=== PATIENT | female | born 1980 | race Caucasian/White ===

== ENCOUNTER → 2018-08-16 15:51 | Outpatient (CLI) | payer MEDICAID, SELFPAY ==
--- NOTE | 2018-08-16 16:04 | RAD_ITS ---
STUDY: X-RAY - LEFT FOOT CLINICAL: Female, 38 years old. Lateral pain TECHNIQUE: 3 view(s) of the foot. COMPARISON: None. FINDINGS: Normal talus, calcaneus, and tarsal bones. Normal visualized subtalar, talonavicular, calcaneocuboid, tarsal and tarsometatarsal articulations. Normal metatarsi. Normal metatarsophalangeal joint of the great toe. Normal tibial and fibular sesamoid bones. Normal interphalangeal joint of the great toe. Normal phalanges of the great toe. Normal second through fifth metatarsophalangeal joints. Normal interphalangeal joints and phalanges of the lesser toes. The soft tissue structures are unremarkable. RAD/Foot min 3 Views IMPRESSION: Normal x-ray examination of the foot. Electronically Signed: Francisco Javier Martinez MD at 16:24 EST , Service support ,
== END ==
PROVIDERS: Family Provider Nurse Practitioner Family; PCP Nurse Practitioner Family; Referring Provider Nurse Practitioner Family; Visit Provider Nurse Practitioner Family
DX: M79.672 Pain in left foot (principal)
CPT/HCPCS: 73630

== ENCOUNTER → 2019-04-26 13:16 | Outpatient (CLI) | payer MEDICAID, SELFPAY ==
--- NOTE | 2019-04-26 13:20 | US_ITS ---
STUDY: ULTRASOUND OF THE FEMALE PELVIS - COMPLETE REASON FOR EXAM: Female, 39 years old. Painful bleeding LMP: 04/12/2019 TECHNIQUE: Transabdominal and Transvaginal TECHNICAL QUALITY: Adequate. COMPARISON: None. FINDINGS: The uterus is retroverted and is in a midline position. The uterus measures 10.4 x 7.1 x 5.0 cm. Normal uterine cervix. The endometrium measures 9.1 mm in thickness, and is fluid distended. There is no demonstrated endometrial mass. There is no demonstrated myometrial mass. I.U.D. - The patient does not have an I.U.D. The right ovary is visualized. The right ovary measures 4.4 x 3.0 x 2.5 cm. There is a simple 2.1 cm cyst. There is normal arterial and normal venous vascularity. The left ovary is visualized. The left ovary measures 2.8 x 2.5 x 1.4 cm. There is no left ovarian cyst or ovarian mass. There is no visualized left adnexal mass or complex lesion. There is normal arterial and normal venous vascularity. There is no fluid in the cul-de-sac. The bladder is sonographically normal US/Transvaginal Non- IMPRESSION: No suspicious sonographic findings, fluid distended endometrium likely related to cycle Electronically Signed: Francisco Javier Martinez MD at 16:49 EDT , Service support ,
--- NOTE | 2019-04-26 13:20 | US_ITS ---
STUDY: ULTRASOUND OF THE FEMALE PELVIS - COMPLETE REASON FOR EXAM: Female, 39 years old. Painful bleeding LMP: 04/12/2019 TECHNIQUE: Transabdominal and Transvaginal TECHNICAL QUALITY: Adequate. COMPARISON: None. FINDINGS: The uterus is retroverted and is in a midline position. The uterus measures 10.4 x 7.1 x 5.0 cm. Normal uterine cervix. The endometrium measures 9.1 mm in thickness, and is fluid distended. There is no demonstrated endometrial mass. There is no demonstrated myometrial mass. I.U.D. - The patient does not have an I.U.D. The right ovary is visualized. The right ovary measures 4.4 x 3.0 x 2.5 cm. There is a simple 2.1 cm cyst. There is normal arterial and normal venous vascularity. The left ovary is visualized. The left ovary measures 2.8 x 2.5 x 1.4 cm. There is no left ovarian cyst or ovarian mass. There is no visualized left adnexal mass or complex lesion. There is normal arterial and normal venous vascularity. There is no fluid in the cul-de-sac. The bladder is sonographically normal US/Pelvic (Non ) IMPRESSION: No suspicious sonographic findings, fluid distended endometrium likely related to cycle Electronically Signed: Francisco Javier Martinez MD at 16:49 EDT , Service support ,
--- NOTE | 2019-04-26 14:46 | RAD_ITS ---
STUDY: X-RAY - RIGHT SHOULDER REASON FOR EXAM: Female, 39 years old. Pain TECHNIQUE: 4 view(s) of the shoulder. COMPARISON: None. FINDINGS: Normal glenohumeral articulation. Normal acromioclavicular joint. Normal acromion. Normal humeral head and visualized proximal humerus. The soft tissue structures are unremarkable. Normal visualized pulmonary apex. RAD/Shoulder min 2 Views IMPRESSION: Normal x-ray examination of the shoulder. Electronically Signed: Francisco Javier Martinez MD at 16:01 EDT , Service support ,
--- NOTE | 2019-04-26 15:00 | RAD_ITS ---
STUDY: X-RAY - RIGHT SCAPULA REASON FOR EXAM: Female, 39 years old. Posterior pain TECHNIQUE: 2 view(s) of the scapula were obtained. COMPARISON: None. FINDINGS: Normal scapula, including the osseous glenoid rim, acromion, scapular neck, spine, coracoid process, and visualized body. Normal glenohumeral articulation. Normal acromioclavicular joint. Normal visualized humeral head. Normal visualized pulmonary apex. RAD/Scapula IMPRESSION: Normal plain film x-ray examination of the scapula. Electronically Signed: Francisco Javier Martinez MD at 16:02 EDT , Service support ,
== END ==
DX: M25.511 Pain in right shoulder (principal); N94.6 Dysmenorrhea, unspecified
CPT/HCPCS: 73010; 73030; 76830; 76856

== ENCOUNTER → 2019-04-29 07:43 | Outpatient (CLI) | payer MEDICAID, SELFPAY ==
[2019-04-29 08:31] LABS: Follicle Stimulating Hormone 2.6 mIU/mL; Luteinizing Hormone 6.1 mIU/mL; Prolactin 20.3 ng/mL
[2019-05-01 09:54] LABS: Progesterone Level 13.91 ng/mL (See Comment)
== END ==
DX: N92.6 Irregular menstruation, unspecified (principal)
CPT/HCPCS: 36415; 83001; 83002; 84144; 84146; 84403

== ENCOUNTER → 2019-06-23 17:03 | Outpatient (CLI) | payer MEDICAID, SELFPAY ==
--- NOTE | 2019-06-23 | EMB_PTH ---
PATIENT: HESHAM WILKES LOC: [facility] U#:[id number] AGE/SX: 45/F ROOM: RE06/23/[address]: Dr. Adelia Ríos MD : 1980 BED: DIS: SPEC #: [id number] RECD: 06/23/19 16:40 STATUS: ALEK ERIC #: [id number] DARYA: 06/23/19 00:[address]: Adelia Ríos DEPT: SURGICAL PATHOLOGY RECD BY: Santhosh Yuan ENTERED: 06/26/19 10:14 SP TYPE: ENDOM BX/C JUAN DR: Gillian [facility] Tissues: Endometrium, NOS Procedures: Surgery Specimen Level IV HEADER OPERATION: Endometrial biopsy PRE-OP DIAGNOSIS: Menorrhagia with regular cycle TISSUE SUBMITTED: Endometrial lining MICROSCOPIC DIAGNOSIS Endometrium, biopsy: Secretory endometrium. Detached squamous epithelial cells with no significant pathologic change. AM:kim 06/27/19 MICROSCOPIC DESCRIPTION Slides are reviewed. GROSS DESCRIPTION Received is one container labeled with the patient's name and not further designated. The specimen consists of multiple fragments of hemorrhagic soft tissue mixed with mucoid tissue that in aggregate measure 2.5 x 2 x 0.1 cm. The specimen is totally submitted in one cassette. / SJ:rg 06/26/19 TC:5 CPT: 88590
[2019-06-23 08:13] VITALS: BMI 42.9
== END ==
PROVIDERS: Referring Provider Obstetrics & Gynecology; Visit Provider Obstetrics & Gynecology
DX: N85.8 Other specified noninflammatory disorders of uterus (principal); N92.0 Excessive and frequent menstruation with regular cycle
CPT/HCPCS: 88305

== ENCOUNTER 2019-08-08 05:14 | Day surgery (SDC) | payer MEDICAID, SELFPAY ==
[2019-06-23 08:13] VITALS: BMI 42.9
[2019-08-01 13:44] VITALS: BMI 42.9
[2019-08-01 13:44] LABS: Hematocrit 38.3 % (37-47); Hemoglobin 12.5 g/dL (12.0-15.0); Mean Corp Hgb Conc 32.6 g/dL (32-36); Mean Corpuscular Hgb 28.5 pg (27.0-32.0); Mean Corpuscular Volume 87.2 fL (81-99); Mean Platelet Vol. 9.2 fl (6.2-12.0); Platelet Count 362 K/mm3 (150-450); RBC Distribution Width CV 12.8 % (11.6-14.6); RBC Distribution Width SD 40.8 fl (35.1-43.9); Red Blood Count 4.39 M/mm3 (4.2-5.4); White Blood Count 10.6 K/mm3 (4.4-11.0)
[2019-08-01 13:52] LABS: Prothrombin Time (Protime)PT. 12.6 SECONDS (11.7-14.9)
[2019-08-01 13:53] LABS: Partial Thromboplast Time 30.6 Seconds (24.1-36.2)
[2019-08-08] VITALS (12 sets, daily range): BP systolic 80–137; BP diastolic 54–79; PULSE 66–111; RESP 16–18; TEMP 36.2–37.2; O2SAT 93–100; BMI 44.9
--- NOTE | 2019-08-08 05:42 | PCM.HPOB.BLA ---
- Problem List (1) Dysmenorrhea Status: Acute Comment: plan LAVH BS cysto. emb done. possible TLH (2) Menorrhagia with regular cycle Status: Acute Comment: failed OCP. Declines IUD. 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 Is patient in pain?: No Allergies sulfamethoxazole [From Bactrim] Adverse Reaction (Intermediate, Verified 08/01/19 13:43) itchy trimethoprim [From Bactrim] Adverse Reaction (Intermediate, Verified 08/01/19 13:43) itchy Medications Ascorbic Acid [Vitamin C] 1,000 mg PO DAILY 08/01/19 [History Confirmed 08/01/19] Cholecalciferol (VIT D3) [Vitamin D] 1,000 unit PO DAILY 08/01/19 [History Confirmed 08/01/19] Vitamin B Complex 1 ea PO DAILY 08/01/19 [History Confirmed 08/01/19] Is last menstrual period known: No Post menopausal: No Patient : No : [facility] Medical History Anemia (Acute) Vitamin D deficiency (Acute) Surgical History (Updated 08/01/19 @ 13:51 by Adelia Ríos MD) delivery delivered (Acute) FHx: cholecystectomy (Acute) H/O tubal ligation (Acute) Social History (Updated 08/01/19 @ 13:55 by Adelia Ríos MD) number of children: 3 current occupational status: employed current occupation: [employer] Smoking Status: Former smoker quit date: 09/09/18 alcohol intake: never substance use type: does not use caffeine: Yes seatbelt use: always do you feel safe at home: Yes additional social history: post office manager HPI pre op LAVH BS CYST: Details: HESHAM WILKES is a 39 year old who presents for heavy menstrual bleeding failed medical management. Uterus 10 cm on ultrasound and nl emb. Female Reproductive History Questions: Metorrhagia: No, Sexually active: Yes Pregancy History 4 Elective abortions Hx Para 3 Spontaneous abortions 1 Hx # Term Pregnancies 3 Ectopic pregnancies Hx # Pregnancies Multiple births # of living children 3 Past Pregnancies Del. Date Name GA/Weeks Outcome Route Bth Weight [facility] Peggy 2002 Unknown Mode 2004 Unknown Justyn 2012 ROS Const Constitutional: Denies fatigue, fever(s), headache(s), increased appetite, poor appetite, weight gain or weight loss ENT ENT: Denies dizziness or dry mouth Cardio Card: Denies chest pain Resp Resp: Denies cough or dyspnea GI GI: Reports as per HPI; denies abdominal pain, constipation, nausea or vomiting : Reports as per HPI; denies difficulty urinating, painful urination, pelvic pain, urinary frequency, urinary incontinence, urinary hesitancy, urinary urgency, vaginal discharge, vaginal dryness, vaginal odor or vaginal itching Musc Musc: Denies joint pain, back pain or muscle weakness Skin Skin/Breast: Denies hair loss, change in hair, dry skin, breast lump, breast pain or breast skin changes Neuro Neuro: Denies dizziness Psych Psych: Denies anxiety or depression Endo Endo: Denies cold intolerance, excessive sweating, heat intolerance or increased thirst Felice/Lymph Hematologic/Lymphatic: Denies easy bleeding, Denies easy bruising, Denies enlarged lymph nodes Exam Const General: cooperative, healthy appearing, comfortable, no acute distress, well developed Nutritional Appearance: average body habitus Orientation: alert [facility] Head: normal to inspection, normocephalic Ears: hearing grossly normal bilaterally, external ears normal Nose: external nose normal, nares normal Face and sinus: normal facial exam Neck Neck: normal visual inspection, no lymphadenopathy, trachea midline Thyroid: thyroid normal Chest Chest palpation & inspection: normal inspection of the chest Resp Effort & Inspection: normal respiratory effort Auscultation: clear to auscultation bilaterally Cardio Rate: regular rate Rhythm: regular rhythm Heart Sounds: S1 normal, S2 normal GI Inspection: normal to inspection, non-distended Palpation: soft, no hepatosplenomegaly General: bladder normal to palpation External Female Exam: normal external appearance, normal appearance of the urethra Urethra: normal appearance of the urethra Speculum Exam - Vagina: normal appearance of the vagina, normal vaginal discharge Speculum Exam - Cervix: normal appearance of the cervix, nontender Bimanual Exam- Vagina & Uterus: bladder normal to palpation, No cervical tenderness Bimanual Exam- Adnexa, other: normal adnexae, adnexae mobile, no adnexal masses, pelvic support normal Pelvic Support: normal Musc Cervical Spine: other Other: gross motor intact no deficits, full bilateral strength Skin General: no rashes or lesions noted Neuro General: alert, awake, moves all extremities, no focal motor deficits Motor: muscle tone normal throughout Extrem General: normal to inspection, no pedal edema Psych Appearance: grossly normal Mental Status: mental status grossly normal Affect: normal affect Speech and Movement: speech and movement normal Assessment & Plan Problems 1. Menorrhagia with regular cycle N92.0 failed OCP. Declines IUD. US normal Plan After discussing the patient's diagnosis and treatment plan options, patient wishes to proceed with surgical management. I have discussed with the patient the risks, benefits, and alternatives of the procedure which include but are not limited to risks of anesthesia, bleeding, infection, possible damage to bowel, bladder, or surrounding vasculature which could lead to additional surgery to evaluate any complications. Patient agrees to procedure and wishes to proceed. ACOG/uptodate references given for additional information regarding procedure. Coding Level of Care Code No Charge Diagnoses Menorrhagia with regular cycle N92.0 UPDATE- I have seen the patient and performed any clinically relevant updates to the history and physical exam. Adelia Ríos MD
[2019-08-08] MEDS: Magnesium Sulfate 4gm/100mL 4 GM/100 ML IV.SOLN. IV (06:01)
[2019-08-08] MEDS: dexAMETHasone 10 MG/ML Vial 8 MG IV (06:04)
[2019-08-08] MEDS: Acetaminophen 500 MG Tablet 1000 MG PO ×4 (06:04→23:13)
[2019-08-08] MEDS: Celecoxib 200 MG Capsule 400 MG PO (06:05)
[2019-08-08] MEDS: Phenazopyridine 95 MG Tablet 190 MG PO (06:06)
[2019-08-08] MEDS: Gabapentin 600 MG Tablet PO (06:07)
[2019-08-08] MEDS: Scopolamine 1mg/72hr Patch 1 PATCH TRANSDERM. (06:07)
[2019-08-08] MEDS: Lactated Ringers 1,000 ML 100 ML IV ×2 (06:34→10:54)
[2019-08-08 07:14] LABS: Bedside Glucose 108 mg/dL (70-110)
--- NOTE | 2019-08-08 08:20 | PCM.OPRPT ---
Problem List (1) Dysmenorrhea Status: Acute Comment: plan LAVH BS cysto. emb done. possible TLH (2) Menorrhagia with regular cycle Status: Acute Comment: failed OCP. Declines IUD. US normal (3) Climacteric Status: Chronic Comment: discussed if persistent after LAVH plan effexor Report of Operation Date of Procedure: 08/08/19 Pre-Operative Diagnosis: AUB Post-Operative Diagnosis: same Surgery/Procedure Performed:: LAVH BS cysto engraver steel plate: Madelyn Becerril Type of Anesthesia:: General Special Medications: none Specimen's removed: uterus tubes Drains: hamlin Fluids Replaced: crystalloid Description of Procedure: Patient received preoperative antibiotics and SCDs were on preoperatively. Patient was taken back to the operating room and placed in the dorsal lithotomy position. General anesthesia was induced and patient was prepped and draped in normal sterile fashion. Uterine manipulator was placed inside the uterus and Hamlin catheter placed in the bladder. The umbilicus was grasped with towel clamps and an intraumbilical incision was made after injecting with quarter percent Marcaine and a Veress needle entered into the abdomen confirmed to be intra-abdominal with a low opening pressure. Abdomen was insufflated with CO2 gas and the Veress needle removed and the 5 mm trocar was placed under direct visualization without complication. Right and left lower quadrants were transilluminated and injected with quarter percent Marcaine and 5 mm ports placed under direct visualization. Pelvis was well visualized see operative findings for additional information. Bilateral fallopian tubes were identified and transected with the LigaSure device across the mesosalpinx to the level of the utero-ovarian ligament which was also transected with the LigaSure device. The broad ligament was opened up by transecting the round ligament bilaterally and skeletonizing the uterine vessels bilaterally and creating a bladder flap using the LigaSure device. The uterine arteries were transected bilaterally with good visualization of the bladder and the ureters were seen to be inferior lateral to the operative area. Attention was then paid to the vaginal portion of the procedure and the cervix was grasped with Saurabh clamps and circumferentially injected with dilute vasopressin. A circumferential incision was made and the vaginal mucosa was mobilized off posteriorly and the cul-de-sac entered into sharply and a longneck speculum placed. The anterior cul-de-sac was then identified and entered into sharply. The uterosacral ligaments were clamped cut and suture ligated with 0 Monocryl bilaterally followed by the cardinal ligaments which were clamped cut and suture ligated bilaterally with 0 Monocryl. The uterus serially descended and was removed without difficulty with minimal morcellation. Pelvic sidewall pedicles were checked and noted to have excellent hemostasis. The vaginal mucosa was reapproximated incorporating the posterior peritoneum. This was reapproximated using 0 Vicryl [id number] sutures. Excellent hemostasis was noted. The cystoscopy was then performed and bilateral ureteral strong spray was noted and the bladder was noted to have no abnormality or lesions seen. Hamlin catheter was replaced and then attention paid to the abdominal portion of the procedure again. The pelvis and cul-de-sac was well visualized and no significant active bleeding noted but some raw areas were seen on the peritoneum and therefore Holley was applied. Pressure was taken down and the areas visualized and noted of excellent hemostasis. All ports were removed under direct visualization without complication and the abdomen was desufflated of air. The instruments removed from the abdomen and the vagina vaginal sweep was negative. Port sites on the abdomen were closed with 4-0 Monocryl interrupted sutures and Steri's and windows were applied. She was awoken and taken recovery in stable condition. Grafts/Implants Used: none - Admit VTE Documentation VTE Present on Admission: No VTE Mechan Device Prophylaxis: SCD's Multi Select Codes - Urinary/Genital Urinary/Genital CPT Codes: 15058 LAVH+BS/O <250gr Uterus
[2019-08-08] MEDS: Cefazolin 2 GM in 0.9% Normal Saline 100 ML IV (08:21)
[2019-08-08] MEDS: Vasopressin 20 UNITS/ML Vial (08:48)
[2019-08-08] MEDS: Bupivacaine 0.25% 30 ML Vial (08:55)
--- NOTE | 2019-08-08 11:40 | DCINST_ITS ---
Discharge Diet: No Restrictions Discharge Activity: Return to Normal Activity, May Not Drive, May Shower May resume sexual activity in: 6-8 weeks Call your doctor if your incision/area has: Continuous Slow Oozing, Sudden Increased Bleeding, Increased Pain/ Swelling, Increased Redness, Foul Smelling Discharge Call your doctor if you observe: Fever of 101 or Higher, Inability to urinate, Inability to have a bowel movement, Using more than one pad per hour Allergies/Adverse Reactions: Allergies sulfamethoxazole [From Bactrim] Adverse Reaction (Intermediate, Verified 08/08/19 05:50) itchy trimethoprim [From Bactrim] Adverse Reaction (Intermediate, Verified 08/08/19 05:50) itchy Medications to take at Discharge Ascorbic Acid [Vitamin C] 1,000 mg PO DAILY 08/01/19 Cholecalciferol (VIT D3) [Vitamin D] 1,000 unit PO DAILY 08/01/19 Vitamin B Complex 1 ea PO DAILY 08/01/19 hydroxyzine pamoate 25 mg capsule 25 mg PO Q6H PRN #20 cap 08/04/19 Naproxen [Naprosyn] 250 - 500 mg PO Q8H PRN PRN #30 tab 08/08/19 Oxycodone HCl/Acetaminophen [Percocet 5-325] 1 - 2 tablet PO Q6H PRN PRN 7 Days #15 tablet 08/08/19 The following prescriptions were given: Naproxen [Naprosyn] 250 - 500 mg PO Q8H PRN PRN #30 tab PRN Reason: MILD PAIN Transmission Status: Pending to [facility] Oxycodone HCl/Acetaminophen [Percocet 5-325] 1 - 2 tablet PO Q6H PRN PRN 7 Days #15 tablet PRN Reason: Pain Transmission Status: Sent to [facility] Orders to be completed after discharge: Type & Screen Time Frame: 08/01/19, Facility: [facility], Location: Laboratory CBC-Complete Blood Cnt No Diff Time Frame: 08/01/19, Facility: [facility], Location: Laboratory Partial Thromboplast Time Time Frame: 08/01/19, Facility: [facility], Location: Laboratory Prothrombin Time w/INR Time Frame: 08/01/19, Facility: [facility], Location: Laboratory Primary Care Physician: Gillian Son [Primary Care Provider] - Test Results: Test results from this visit will be discussed in further detail at your follow- up appointment, if applicable. Please Follow Up With: Adelia Ríos MD - [phone]
[2019-08-08] MEDS: Ketorolac 30 MG/ML Syringe IV (17:37)
[2019-08-08] MEDS: Docusate Sodium 100 MG Capsule PO (21:32)
[2019-08-08] MEDS: Lactated Ringers 1,000 ML 70 ML IV (23:13)
[2019-08-09 02:45] VITALS: BP 126/63; PULSE 94; RESP 18; TEMP 36.7; O2SAT 96
[2019-08-09] MEDS: Ketorolac 30 MG/ML Syringe IV (03:05)
[2019-08-09 06:01] LABS: Hematocrit 34.5 % (37-47); Hemoglobin 11.1 g/dL (12.0-15.0); Mean Corp Hgb Conc 32.2 g/dL (32-36); Mean Corpuscular Hgb 28.3 pg (27.0-32.0); Platelet Count 377 K/mm3 (150-450); RBC Distribution Width CV 12.9 % (11.6-14.6); RBC Distribution Width SD 41.5 fl (35.1-43.9); Red Blood Count 3.92 M/mm3 (4.2-5.4); White Blood Count 14.9 K/mm3 (4.4-11.0)
[2019-08-09] MEDS: Acetaminophen 500 MG Tablet 1000 MG PO (06:07)
[2019-08-09 07:33] VITALS: O2SAT 96
[2019-08-09 07:44] VITALS: BP 119/70; PULSE 72; RESP 16; TEMP 36.7; O2SAT 96
[2019-08-09] MEDS: Vitamin B Comp W-C Capsule 1 CAP PO (07:56)
[2019-08-09] MEDS: Docusate Sodium 100 MG Capsule PO (11:04)
== END 2019-08-09 13:30 | disposition home or self-care (01) ==
LOC: SDC 05:14 → AC 05:23 → MS3 09:25
PROVIDERS: Referring Provider Obstetrics & Gynecology
PROC: 0UT9FZZ Resection of Uterus, Via Natural or Artificial Opening With Percutaneous Endoscopic Assistance (ICD-10-PCS; CPT 58552; principal; 2019-08-08 07:05)
DX: D25.1 Intramural leiomyoma of uterus (principal); N80.0 Endometriosis of uterus; Z86.2 Personal history of diseases of the blood and blood-forming organs and certain disorders involving the immune mechanism; Z87.891 Personal history of nicotine dependence
CPT/HCPCS: 58552; 36415; 82962; 85027; 85610; 85730; 86850; 86900; 86901; 88307; 94762; 99251; 99406; J7120; G0463; J2405

== ENCOUNTER → 2020-09-26 13:43 | Outpatient (CLI) | payer MEDICAID, SELFPAY ==
[2020-09-23 14:29] VITALS: BMI 45.3
[2020-09-26 15:00] LABS: Absolute Lymphocyte Count 3.92 X10^3/uL (0.83-4.51); Absolute Neutrophil Count 5.5 X10^3/uL (2.0-7.7); Basophil# 0.08 X10^3/uL; Basophil% 0.8 % (0-1); Eosinophils% 3.8 % (0-5); Hematocrit 43.4 % (37-47); Hemoglobin 14.1 g/dL (12.0-15.0); Lymphocyte # 3.92 X10^3/ul (4.0); Mean Corp Hgb Conc 32.5 g/dL (32-36); Mean Corpuscular Hgb 28.9 pg (27.0-32.0); Mean Corpuscular Volume 88.9 fL (81-99); Mean Platelet Vol. 9.7 fl (6.2-12.0); Monocyte# 0.64 X10^3/uL; NRBC Flagged by Analyzer 0 % (0-5); Neutrophil # 5.53 X10^3/uL (2.7-7.7); Neutrophil % 52.1 % (47-70); Platelet Count 369 K/mm3 (150-450); RBC Distribution Width CV 12.6 % (11.6-14.6); RBC Distribution Width SD 40.9 fl (35.1-43.9); Red Blood Count 4.88 M/mm3 (4.2-5.4); White Blood Count 10.6 K/mm3 (4.4-11.0)
[2020-09-26 15:25] LABS: Hemoglobin A1c 5.6 % (3.8-5.6)
[2020-09-26 15:57] LABS: ALB/GLOB Ratio 0.9 RATIO (0.9-2.4); AST(SGOT) 16 U/L (15-37); Alanine Aminotransfer ALT/SGPT 31 U/L (13-56); Albumin, Serum 3.7 g/dL (3.2-5.0); Alkaline Phosphatase 78 U/L (45-117); Anion Gap 6 (5-15); BUN 15 mg/dL (7-18); Chloride 110 mmol/L (98-107); Cholesterol 176 mg/dL (200); Creatinine, Serum 0.68 mg/dL (0.55-1.02); EST Glomerular Filtration Rate 102 mL/min (>60); Est Glom Filt Rate - Afr Amer 123 mL/min (>60); Globulin 3.9 g/dL (2.2-4.2); Glucose 77 mg/dL (74-106); High Density Lipoprotein 48 mg/dL; Potassium 3.7 mmol/L (3.5-5.1); Protein, Total 7.6 g/dL (6.4-8.2); Sodium Level 139 mmol/L (136-145); T4 Free Direct 0.99 ng/dL (0.76-1.46); Thyroid Stim Hormone (TSH) 1.42 uIU/mL (0.358-3.74); Triglycerides 170 mg/dL; Very Low Density Lipoprotein 34 mg/dL (5-40)
[2020-09-28 09:28] LABS: Thyroid Peroxidase AB < 9 IU/mL (0-34)
== END ==
PROVIDERS: Referring Provider Nurse Practitioner Adult Health; Visit Provider Nurse Practitioner Adult Health
DX: R63.5 Abnormal weight gain (principal)
CPT/HCPCS: 36415; 80053; 80061; 83036; 84439; 84443; 85025; 86376

== ENCOUNTER → 2020-10-29 20:00 | Outpatient (CLI) | payer MEDICAID, SELFPAY ==
[2020-09-23 14:29] VITALS: BMI 45.3
== END ==
DX: G47.33 Obstructive sleep apnea (adult) (pediatric) (principal)
CPT/HCPCS: 95810

== ENCOUNTER → 2020-11-26 20:04 | Outpatient (CLI) | payer MEDICAID, SELFPAY ==
[2020-11-13 07:42] VITALS: BMI 44.6
[2020-11-25 08:16] VITALS: BMI 44.6
[2020-11-26] MEDS: Zolpidem Tartrate 5 MG Tablet PO (21:55)
== END ==
PROVIDERS: Visit Provider Nurse Practitioner Acute Care
DX: G47.33 Obstructive sleep apnea (adult) (pediatric) (principal)
CPT/HCPCS: 95810

== ENCOUNTER → 2021-02-18 07:16 | Outpatient (CLI) | payer MEDICAID, SELFPAY ==
[2021-01-27 08:36] VITALS: BMI 44.9
--- NOTE | 2021-02-18 07:17 | MRI_ITS ---
EXAM: MR HEAD WITHOUT AND WITH INTRAVENOUS CONTRAST : 1980 CLINICAL INDICATION: migraine headaches TECHNIQUE: Multiplanar and multisequence MR images of the brain were obtained without and with intravenous contrast. This report was created using [employer] report Authentic Response technology. CONTRAST: None specified COMPARISON: None. FINDINGS: BRAIN AND EXTRA-AXIAL SPACES: Unremarkable. No intra- or extra-axial hemorrhage. No evidence of acute infarct. No intracranial mass or mass effect. There is preservation of the corona/white matter interface. Posterior fossa structures are unremarkable. Ventricles are appropriate for age. No hydrocephalus. Basal cisterns are patent. No abnormal contrast enhancement SELLA: Unremarkable. Normal sella turcica, pituitary gland, infundibular stalk, optic chiasm and hypothalamus. AUDITORY SYSTEM: Unremarkable. The internal auditory canals are patent. BONES/JOINTS: Unremarkable. No discrete lytic or blastic abnormalities. SINUSES: Unremarkable as visualized. Clear. MASTOID AIR CELLS: Unremarkable as visualized. Clear. ORBITS: Unremarkable as visualized. Both globes, extraocular muscles, optic nerves and retrobulbar fat appear unremarkable. VASCULATURE: Unremarkable as visualized. Normal flow voids in the major intracranial circulation. MRI/Brain W/WO Contrast IMPRESSION: Normal MRI of the brain with and without contrast. at 1102 Reported and signed by: Kana Merrill MD Electronically Signed: Kana Merrill MD at 11:01 EDT Tel , Service support ,
[2021-02-18 08:00] LABS: CREATININE FINGERSTICK 0.8 mg/dL (0.55-1.02); EGFR FINGERSTICK > 60.0000 mL/min (>60)
== END ==
PROVIDERS: Referring Provider Psychiatry & Neurology Neurology; Visit Provider Psychiatry & Neurology Neurology
DX: G43.009 Migraine without aura, not intractable, without status migrainosus (principal)
CPT/HCPCS: 70553; A9575

== ENCOUNTER 2021-09-16 16:25 | Outpatient (CLI) | payer MEDICAID, SELFPAY ==
--- NOTE | 2021-09-16 16:28 | BI_ITS ---
MAMMOGRAPHY - BILATERAL SCREENING REASON FOR EXAM: Female, 41 years old. Routine annual screening examination. PERTINENT HISTORY: Non-contributory. TECHNIQUE: Digital bilateral breast jessica (3D mammographic acquisition) in the CC and MLO projections. 2-D mediolateral oblique (MLO) and craniocaudad (CC) views of both breasts were obtained. CAD: Full Field Digital Mammography with Computer Added Detection was performed. COMPARISON: None. Baseline examination. FINDINGS: Breast Composition: The breasts are almost entirely fatty. There is a 1 cm x 1 cm well-defined nodule with a central fatty hilum in the upper slightly medial aspect of the right breast. This most likely represents a small intramammary lymph node. Correlation with ultrasound is recommended. Small bilateral benign-appearing axillary lymph nodes. No other significant abnormalities are identified. BI/SCRN MAMM (CAD)W/JESSICA BILAT IMPRESSION: 1 cm x 1 cm well-defined nodule in the right breast as described most likely representing a lymph node. Correlation with ultrasound is recommended. ASSESSMENT CATEGORY: BIRADS Category 0: Incomplete. Need additional imaging evaluation. A letter regarding these results will be sent to the patient by the facility within 30 days. Approximately 10% of breast cancers are not detected by mammography. A normal mammogram should not delay biopsy of a clinically suspicious abnormality. [id number] Electronically Signed: Anthony Elkins MD at 8:34 EST ,
== END 2021-09-16 23:59 | disposition home or self-care (01) ==
LOC: OPBI 16:26
PROVIDERS: Referring Provider Nurse Practitioner Women's Health; Visit Provider Nurse Practitioner Women's Health
DX: Z12.31 Encounter for screening mammogram for malignant neoplasm of breast (principal)
CPT/HCPCS: 77063; 77067

== ENCOUNTER 2021-09-23 07:54 | Outpatient (CLI) | payer MEDICAID, SELFPAY ==
--- NOTE | 2021-09-23 07:56 | US_ITS ---
STUDY: ULTRASOUND BREAST - RIGHT REASON FOR EXAM: Female, 41 years old. Abnormal screening mammogram. TECHNIQUE: Axial and longitudinal images of the RIGHT breast were performed with a high resolution ultrasound transducer. # OF IMAGES: 23 COMPARISON: 09/16/2021 FINDINGS: RIGHT Breast: Heterogeneous echotexture and architecture. At 5 o''clock, 4 cm from the nipple, ultrasound confirms a 5 x 12 mm oval parallel indistinct hypoechoic mass with no posterior features not consistent with a simple cyst.: US/Breast Limited Unilateral IMPRESSION: Ultrasound confirms a 5 x 12 mm oval parallel indistinct hypoechoic mass and ultrasound-guided vacuum-assisted core biopsy is recommended. ASSESSMENT CATEGORY: BIRADS Category 4: Suspicious - Biopsy Should Be Considered. A letter regarding these results will be sent to the patient by the facility within 30 days. Electronically Signed: Joshua Mohamud MD at 9:38 EDT ,
== END 2021-09-23 23:59 | disposition home or self-care (01) ==
PROVIDERS: Referring Provider Nurse Practitioner Women's Health; Visit Provider Nurse Practitioner Women's Health
DX: N63.10 Unspecified lump in the right breast, unspecified quadrant (principal)
CPT/HCPCS: 76642

== ENCOUNTER 2021-09-26 16:05 | Outpatient (CLI) | payer MEDICAID, SELFPAY ==
--- NOTE | 2021-09-26 14:05 | BRBX_PTH ---
PATIENT: HESHAM WILKES LOC: [facility] U#:[id number] AGE/SX: 41/F ROOM: RE09/26/[address]: Dr. Jake Crowell MD : 1980 BED: DIS: 09/26/2021 SPEC #: [id number] RECD: 09/26/21 15:40 STATUS: ALEK REJosselyn #: [id number] DARYA: 09/26/21 14:[address]: Jake Crowell DEPT: SURGICAL PATHOLOGY RECD BY: Stefani Santiago ENTERED: 09/29/21 10:34 SP TYPE: BREAST BX OTHR DR: Gillian [facility] Tissues: Right breast, NOS Procedures: Surgery Specimen Level IV HEADER OPERATION: Right breast biopsy PRE-OP DIAGNOSIS: Right breast mass TISSUE SUBMITTED: Right breast tissue MICROSCOPIC DIAGNOSIS Right breast mass, core biopsy: Fibroadenoma. Negative for atypia or malignancy. See comment. SJ:kim 09/30/2021 COMMENT Correlation with clinical, radiologic findings and appropriate follow up are necessary. MICROSCOPIC DESCRIPTION Slides are reviewed. GROSS DESCRIPTION Received in fixative is one container labeled with the patient's name and designated right breast. The specimen consists of multiple irregular and elongated fragments of eldridge tissue that in aggregate measure 1.7 x 1 x 0.1 cm. The specimen is totally submitted in one cassette. / AM:kim 09/29/2021 TC:1 CPT: 77782
== END 2021-09-26 23:59 | disposition home or self-care (01) ==
LOC: LABSPEC 16:06
PROVIDERS: Visit Provider Surgery
DX: D24.1 Benign neoplasm of right breast (principal)
CPT/HCPCS: 88305

== ENCOUNTER → 2022-04-02 | Outpatient (CLI) | payer OTHER, MEDICAID, SELFPAY ==
--- NOTE | 2022-04-02 09:14 | US_ITS ---
STUDY: ULTRASOUND BREAST - RIGHT REASON FOR EXAM: Female, 42 years old. Right breast mass TECHNIQUE: Axial and longitudinal images of the RIGHT breast were performed with a high resolution ultrasound transducer. # OF IMAGES: 33 COMPARISON: 09/23/2021 FINDINGS: RIGHT Breast: Heterogeneous background echotexture. At 5 o''clock, 4 cm nipple, ultrasound demonstrates no change from 1.4 cm oval parallel circumscribed hypoechoic mass which has been biopsied.: US/Breast Limited Unilateral IMPRESSION: No change in the 1.4 cm oval hypoechoic mass which has been biopsied. ASSESSMENT CATEGORY: BIRADS Category 2: Benign. A letter regarding these results will be sent to the patient by the facility within 30 days. Electronically Signed: Joshua Mohamud MD at 10:10 EDT ,
== END | disposition home or self-care (01) ==
LOC: OPUS 09:13
PROVIDERS: Visit Provider Surgery
DX: N63.10 Unspecified lump in the right breast, unspecified quadrant (principal)
CPT/HCPCS: 76642

== ENCOUNTER → 2022-09-24 | Outpatient (CLI) | payer OTHER, SELFPAY ==
--- NOTE | 2022-09-24 09:31 | BI_ITS ---
MAMMOGRAPHY - BILATERAL SCREENING 3-D TOMOSYNTHESIS REASON FOR EXAM: Female, 42 years old. Routine screening PERTINENT HISTORY: No significant family history. TECHNIQUE: 2-D mammograms and 3-D Tomosynthesis of the breast (s) were performed. CAD was performed. COMPARISON: 09/16/2021 FINDINGS: The breast composition is almost entirely fat. Scattered benign calcifications are seen. No dense spiculated masses or suspicious microcalcifications are identified. No architectural distortion is identified. There is no skin thickening or retraction. Stable well-defined nodule in the right breast which is undergone previous biopsy. There has been no significant change since the prior study. No new suspicious findings BI/SCRN MAMM (CAD)W/JESSICA BILAT IMPRESSION: No mammographic signs of malignancy. Routine yearly mammograms recommended. ASSESSMENT CATEGORY: BIRADS Category 2: Benign. A letter regarding these results will be sent to the patient by the facility within 30 days. FOLLOW UP RECOMMENDATION: Yearly follow up mammogram recommended. (A) Approximately 10% of breast cancers are not detected by mammography. A normal mammogram should not delay biopsy of a clinically suspicious abnormality. Electronically Signed: Francisco Javier Martinez MD at 10:27 EDT ,
== END | disposition home or self-care (01) ==
LOC: OPBI 09:29
PROVIDERS: Referring Provider Obstetrics & Gynecology; Visit Provider Obstetrics & Gynecology
DX: Z12.31 Encounter for screening mammogram for malignant neoplasm of breast (principal)
CPT/HCPCS: 77063; 77067

== ENCOUNTER → 2023-09-27 | Outpatient (CLI) | payer OTHER, SELFPAY ==
--- NOTE | 2023-09-27 14:30 | BI_ITS ---
MAMMOGRAPHY - BILATERAL SCREENING REASON FOR EXAM: Female, 43 years old. Routine annual screening examination. PERTINENT HISTORY: Non-contributory. Prior right breast biopsy. TECHNIQUE: Digital bilateral breast jessica (3D mammographic acquisition) in the CC and MLO projections. 2-D mediolateral oblique (MLO) and craniocaudad (CC) views of both breasts were obtained. CAD: Full Field Digital Mammography with Computer Added Detection was performed. COMPARISON: Comparison is made with prior study dated September 24, 2022 and September 16, 2021. FINDINGS: Breast Composition: There are scattered areas of fibroglandular density. There are no dominant masses or suspicious calcifications. A tissue clip marker is seen within a tiny nodule in the inferior medial aspect of the right breast. Stable appearance of the small bilateral axillary lymph nodes. No other significant abnormalities are identified. There has been no significant change since the prior study. BI/SCRN MAMM (CAD)W/JESSICA BILAT IMPRESSION: Stable bilateral screening mammogram. Yearly follow-up mammogram recommended. (A) ASSESSMENT CATEGORY: BIRADS Category 2: Benign. A letter regarding these results will be sent to the patient by the facility within 30 days. Approximately 10% of breast cancers are not detected by mammography. A normal mammogram should not delay biopsy of a clinically suspicious abnormality. [id number] Electronically Signed: Anthony Elkins MD at 15:21 EDT ,
== END | disposition home or self-care (01) ==
LOC: OPBI 14:30
PROVIDERS: PCP Family Medicine; Referring Provider Obstetrics & Gynecology; Visit Provider Obstetrics & Gynecology
DX: Z12.31 Encounter for screening mammogram for malignant neoplasm of breast (principal)
CPT/HCPCS: 77063; 77067

== ENCOUNTER → 2024-11-08 | Outpatient (CLI) | payer OTHER, SELFPAY | END | disposition home or self-care (01) | LOC: LABSPEC 15:51 | PROVIDERS: PCP Family Medicine; Referring Provider Nurse Practitioner Women's Health; Visit Provider Nurse Practitioner Women's Health | DX: N89.8 Other specified noninflammatory disorders of vagina (principal) | CPT/HCPCS: 87070; 87205 ==